=== PATIENT | female | born 1995 | race Caucasian/White ===

== ENCOUNTER → 2016-02-23 | Outpatient (CLI) | payer OTHER ==
--- NOTE | 2016-02-23 13:38 | KCIC ---
PROCEDURE MR of the left shoulder HISTORY Left shoulder pain. Pain for 2 years. No specific injury. TECHNIQUE Standard multiplanar sequences are obtained. COMPARISON None FINDINGS Acromioclavicular joint is intact. There is an intrasubstance defect at the footplate attachment of the supraspinatus tendon towards its posterior aspect. This dissects medially within the tendon tissue to the myotendinous junction. At the anterior and posterior aspect of this defect, there is subtle violation the supraspinatus undersurface. The defect also extends medially to violate the superior surface at the critical zone. These findings are seen on coronal series 6, images six through 11. No retraction. Trace subdeltoid bursal fluid. No significant muscle atrophy. No evidence of subscapularis tendon tear. No significant joint effusion. No evidence of labrum tear. No paralabral cyst. No acute articular cartilage defect. Biceps tendon intact. No bone lesion or acute fracture. No evidence of acute soft tissue abnormality. IMPRESSION Oblique linear rotator cuff tear involving the supraspinatus tendon, extending from the undersurface at the footprint, to the bursal surface at the critical zone. No retraction. Electronically signed by: Robert Mueller MD (Feb 23, 2016 13:37:36)
== END | disposition home or self-care (01) ==
LOC: KCIC MRI 11:24
PROVIDERS: ATTEND Physician Assistant Medical
DX: M25.512 Pain in left shoulder (principal)
CPT/HCPCS: 73221